=== PATIENT | male | born 1945 | race Caucasian/White ===

== ENCOUNTER 2022-03-03 07:24 | Day surgery (SDC) | payer MEDICARE, OTHER ==
[~2022-03-03] VITALS: Ht 172.7 cm; Wt 87.1 kg
[~2022-03-03 07:24] MED LIST: ADVAIR 250-501 EACH INH; COZAAR100 MG PO; HYDROCHLOROTH12.5 MG PO; IRON325 M1 PO; LIPITOR10 MG PO; METFORMIN HCL1000 MG PO; METOPROLOL SUC100 MG PO; MULTI-VITAMIN1 EACH; NEURONTIN300 MG PO; SUPER B-COMPL400 MCG PO; TRAVATAN Z5 ML OPTH; VITAMIN C500 M5 PO; WELCHOL625 MG PO
--- NOTE | 2022-03-03 09:12 | NUR ---
03/03/22 0912 Judit Hernandez 0981-PATIENT ARRIVED TO PACU ON 2L NC RR EVEN AWAKE DENIES PAIN OR NAUSEA. ABDOMEN SOFT. IVF INFUSING. HOB ELEVATED.
--- NOTE | 2022-03-04 06:17 | OR ---
[facility] [address], [place] [address] Signed DATE OF OPERATION: 03/03/2022 SURGEON: William Hernandez MD PREOPERATIVE DIAGNOSES: 1. Iron-deficiency anemia. 2. Fecal urgency. 3. Unremarkable colonoscopy in his 50s or 60s while living in [place]. 4. A history of prostate cancer. POSTOPERATIVE DIAGNOSIS: 1. Mild diffuse gastritis. 2. Minimal sigmoid diverticulosis. 3. Minimal internal hemorrhoids. 4. Absent prostate gland. PROCEDURES: 1. Esophagogastroduodenoscopy with CLOtest and biopsies of the antrum. 2. Colonoscopy with hot biopsies. ESTIMATED BLOOD LOSS: None. INDICATIONS: Raheel is a 76-year-old gentleman, asked to see me for upper and lower endoscopy. He is known to have iron-deficiency anemia, he has been using iron tablets. He said his stool soft and dark, but can be followed by loose stool. He said overall he thinks it is much better. He said he can have fecal urgency. He has been on metformin for years and had his gallbladder out years ago and said that did not change his bowel movements. So far, he said his blood work and stool studies have come back fine. His hemoglobin is borderline at 11.2 with a mean cell volume of 96. He gives no family history of colon cancer or polyps. He spoke of colonoscopy in his late 50s maybe early 60s while living in [place], to his knowledge that was negative. He has a history of prostate cancer and his prostate is essentially absent on digital rectal exam. In the office I gave Raheel a pamphlet on both upper and lower endoscopy. We discussed the two tests in detail. He understands there is risk including, but not limited to gas bloating, crampy abdominal pain, bleeding, perforation requiring surgery, and missed diagnosis. We also reviewed the need for IV conscious sedation. He had expressed understanding and wished to proceed. Electronically Signed By: WILLIAM HERNANDEZ MD 03/04/22 0617 PATIENT NAME: RAHEEL SAVAGE OPERATIVE REPORT DATE OF : 43 REPORT #: [id number] PHYSICIAN: WILLIAM HERNANDEZ MD PCP: DANIELLA KUMARI MD REPORT IS CONFIDENTIAL AND NOT TO BE RELEASED WITHOUT AUTHORIZATION [facility] [address], [place] [address] Signed DESCRIPTION OF PROCEDURE: Raheel was taken into our endoscopy suite and placed in the supine semi-recumbent position. The posterior oropharynx was anesthetized with lidocaine spray. A bite block was utilized for the case. He was given a total of 3 mg of Versed and 100 mcg of fentanyl to cover both cases. The adult gastroscope had been introduced and advanced out into the third portion of the duodenum without difficulty. The duodenum and pyloric channel were unremarkable. The stomach showed very mild erythematous changes. We took a biopsy from the antrum for pathologic review as well as CLOtest. Upon retroflexion of scope, we saw no hiatal hernia. There was no ulceration in the pyloric bulb or the stomach. The scope was withdrawn up to the area of the GE junction, which was compliant without stricture. The Z-line remains intact. There was no Henson mucosa. There was no distal esophagitis. The distal, middle, and upper esophagus were unremarkable. After this, the gas was suctioned out and the gastroscope removed. Raheel tolerated his procedure quite well. Raheel was then rotated into the left lateral decubitus position. He was maintained on IV sedation with Versed and fentanyl. A digital rectal exam was performed and he has good sphincter tone. There are no external hemorrhoids. The prostate gland is absent. The adult colonoscope had been introduced and advanced quite easily up into the cecum under direct visualization without difficulty. His prep was quite excellent. We could easily see the appendiceal orifice and the ileocecal valve. The scope was then slowly withdrawn. We found diverticula in the left and sigmoid colon. They were moderate in size, few in number, and scattered about. There were no polyps. The rectum was unremarkable. Upon retroflexion of scope, he has very minimal internal hemorrhoid tissue. After this, the gas was suctioned out. The colonoscope removed. Raheel tolerated the procedure quite well. RECOMMENDATIONS: I will see Raheel back in my office in 7 to 14 days to review his results. He might consider an H2 shannon or proton-pump inhibitor for a month or two until the stomach settles down and his iron deficiency anemia resolves. William Hernandez MD ALB/MODL /[id number] Electronically Signed By: WILLIAM HERNANDEZ MD 03/04/22 0617 PATIENT NAME: RAHEEL SAVAGE OPERATIVE REPORT DATE OF : 43 REPORT #: [id number] PHYSICIAN: WILLIAM HERNANDEZ MD PCP: DANIELLA KUMARI MD REPORT IS CONFIDENTIAL AND NOT TO BE RELEASED WITHOUT AUTHORIZATION [address] [place], [place] [address] Signed cc: Patient Chart MD Daniella Santillan M.D. Copies: WILLIAM HERNANDEZ MD ~ Electronically Signed By: WILLIAM HERNANDEZ MD 03/04/22 0617 PATIENT NAME: RAHEEL SAVAGE OPERATIVE REPORT DATE OF : 43 REPORT #: [id number] PHYSICIAN: WILLIAM HERNANDEZ MD PCP: DANIELLA KUMARI MD REPORT IS CONFIDENTIAL AND NOT TO BE RELEASED WITHOUT AUTHORIZATION
--- NOTE | 2022-03-05 15:43 | PATH ---
[facility] [address], [place] [address] Signed SPECIMEN(S): A ANTRUM/PYLORUS BIOPSY SPECIMEN SOURCE: A. ANTRUM/PYLORUS BIOPSY CLINICAL HISTORY: Iron deficiency anemia; fecal urgency; diarrhea. Post-Op Dx: Mild gastritis; colon: diverticulosis. FINAL PATHOLOGIC DIAGNOSIS: Stomach, antrum/pylorus, biopsy: - No significant histopathologic alterations. COMMENT: The sections through the gastric biopsies show fragments of histologically unremarkable antral mucosa. There is no evidence of acute or chronic inflammation. There is no evidence of H. pylori, intestinal metaplasia, abnormal infiltrates or neoplasia. TWK:[facility]:C2NR MICROSCOPIC EXAMINATION: Histologic sections of all submitted blocks are examined by light microscopy. These findings, together with the gross examination, support the pathologic diagnosis. GROSS DESCRIPTION: The specimen, labeled "PN, antrum biopsy," is received in formalin and consists of one leonard soft tissue fragment that measures 0.3 cm in greatest dimension. The specimen is entirely submitted in cassette (A1). JS (under the direct supervision of a pathologist) The Gross Description was prepared using a voice recognition system. The report was reviewed for accuracy; however, sound-alike word errors, addition and/or deletions may occur. If there is any question about this report, please contact Client Services. PERFORMING LABORATORY: The technical component was performed by [facility], [address] [place] [id number] (CLIA# [id number]). The professional interpretation was performed by [facility], [facility], [address] [place] [address] (CLIA#: [id number]). PATIENT NAME: RAHEEL SAVAGE PATHOLOGY DATE OF : 43 REPORT #: [id number] PHYSICIAN: [facility] PCP: HUSAM KUMARI MD REPORT IS CONFIDENTIAL AND NOT TO BE RELEASED WITHOUT AUTHORIZATION [address] [address] Signed Diagnostician: Tomas Baer MD Pathologist Electronically Signed 03/05/2022 Copies: ~ PATIENT NAME: RAHEEL SAVAGE PATHOLOGY DATE OF : 43 REPORT #: [id number] PHYSICIAN: [facility] PCP: HUSAM KUMARI MD REPORT IS CONFIDENTIAL AND NOT TO BE RELEASED WITHOUT AUTHORIZATION
== END 2022-03-03 09:40 | disposition home or self-care (01) ==
LOC: OPS 07:24 → DS 07:24 → OPS 08:15 → DS 08:15 → OPS 09:40
PROVIDERS: ATTEND Colon & Rectal Surgery
PROC: 0DB78ZX Excision of Stomach, Pylorus, Via Natural or Artificial Opening Endoscopic, Diagnostic (ICD-10-PCS; principal; 2022-03-03 08:15)
PROC: 0DJD8ZZ Inspection of Lower Intestinal Tract, Via Natural or Artificial Opening Endoscopic (ICD-10-PCS; 2022-03-03 08:15)
DX: K29.70 Gastritis, unspecified, without bleeding (principal); K57.30 Diverticulosis of large intestine without perforation or abscess without bleeding; K64.8 Other hemorrhoids; R15.2 Fecal urgency; D50.9 Iron deficiency anemia, unspecified; E11.9 Type 2 diabetes mellitus without complications; I10 Essential (primary) hypertension; I48.91 Unspecified atrial fibrillation; E78.5 Hyperlipidemia, unspecified; Z87.891 Personal history of nicotine dependence; Z79.84 Long term (current) use of oral hypoglycemic drugs; Z90.79 Acquired absence of other genital organ(s); Z85.46 Personal history of malignant neoplasm of prostate
CPT/HCPCS: 87077; 88305; 99153; G0500; J2250; J3010; J7121

== ENCOUNTER 2023-10-02 09:40 | Emergency (ER) | payer MEDICARE, OTHER ==
[~2023-10-02] VITALS: Ht 172.7 cm; Wt 87.1 kg
[2023-10-02 10:19] LABS: BASOPHILS 0.7 % (0-2); EOSINOPHILS 1.1 % (0-6); HEMATOCRIT 33.2 % (35.0-50.0); LYMPHOCYTES 24.5 % (24-44); MCH 31.9 (27-36); MCHC 33.2 g/dl (30-36); MONOCYTES 9.5 % (0-12); NEUTROPHILS 64.2 % (39-80); PLATELET COUNT 265 K/uL (140-440); RBC 3.45 M/ul (4.3-5.7); RDW 14.7 (10.5-15.0)
[2023-10-02 10:33] LABS: ALBUMIN 3.7 g/dL (3.4-5.0); ALBUMIN/GLOBULIN RATIO 0.84 (1.1-2.4); BILIRUBIN, TOTAL 0.9 ng/dL (0.2-1.0); BUN/CREATININE RATIO 18.09 (6.0-28.6); CALCIUM 9.6 mg/dL (8.5-10.1); CREATININE, SERUM 1.05 mg/dL (0.70-1.30); MAGNESIUM 1.3 mg/dL (1.8-2.4); PROTEIN, TOTAL 8.1 g/dL (6.4-8.2)
[2023-10-02 15:00] VITALS: BP 144/78
--- NOTE | 2023-10-02 22:16 | EKG ---
[facility] [address] [place] [address] Signed Normal sinus rhythm Normal ECG No previous ECGs available Confirmed by Mary Verma MD () on 10/02/2023 10:15:57 PM Electronically Signed By: MARY VERMA MD 10/02/23 2216 PATIENT NAME: RAHEEL SAVAGE JORGE Electrocardiogram DATE OF : 43 PHYSICIAN: MARY VERMA MD REPORT #: [id number] REPORT IS CONFIDENTIAL AND NOT TO BE RELEASED WITHOUT AUTHORIZATION
== END 2023-10-02 15:00 | disposition home or self-care (01) ==
LOC: ED 09:40
PROVIDERS: Emergency Medicine
DX: R07.89 Other chest pain (principal); E83.42 Hypomagnesemia; Z79.899 Other long term (current) drug therapy; Z79.84 Long term (current) use of oral hypoglycemic drugs
CPT/HCPCS: 36415; 71045; 80053; 83735; 84484; 85025; 85379; 93005; 93010; A9270; J3475